=== PATIENT | female | born 1955 | race Two or more races ===

== ENCOUNTER → 2020-08-16 | Outpatient (CLI) | payer OTHER | END | disposition home or self-care (01) | LOC: OFIC 805 13:55 | PROVIDERS: ATTEND Otolaryngology Otology & Neurotology | DX: G50.0 Trigeminal neuralgia (principal); H90.42 Sensorineural hearing loss, unilateral, left ear, with unrestricted hearing on the contralateral side; H61.21 Impacted cerumen, right ear ==